=== PATIENT | male | born 2000 | race Caucasian/White ===

== ENCOUNTER 2024-06-14 12:24 | Emergency (ER) | payer SELFPAY ==
[~2024-06-14] VITALS: Ht 185.4 cm; Wt 143.8 kg
[~2024-06-14 12:24] MED LIST: CILOXAN 5 ML5 M1 OP; LORTAB 480 ML480 ML PO
[2024-06-14 13:31] LABS: BILIRUBIN Negative (Negative); BLOOD Negative (Negative); CLARITY Clear (Clear); COLOR Yellow (Yellow); GLUCOSE Negative (Negative); KETONE Trace (Negative); LEUKO ESTERASE Negative (Negative); NITRITE Negative (Negative); PH 7.5 (4.5-8.0); SPECIFIC GRAVITY 1.015 (1.001-1.030); UROBILINOGEN 0.2 E.U./dl (0.0-1.0)
[2024-06-14 13:40] LABS: BACTERIA TRACE; RBC 0-2 rbc/hpf (0-2); WBC 0-2 wbc/hpf (0-5)
[2024-06-14] MEDS ORDERED: PREDNISONE50 MG PO (13:48)
[2024-06-14] MEDS ORDERED: METHOCARBAMOL500 M1 PO (13:48)
[2024-06-14] MEDS ORDERED: predniSONE 20 MG TAB PO ONE (13:50)
[2024-06-14] MEDS ORDERED: METHOCARBAMOL 500 MG TAB PO ONE (13:50)
== END 2024-06-14 14:19 | disposition home or self-care (01) ==
LOC: ED 12:24
PROVIDERS: Nurse Practitioner Family
DX: S39.012A Strain of muscle, fascia and tendon of lower back, initial encounter (principal); Z79.2 Long term (current) use of antibiotics; Z79.899 Other long term (current) drug therapy; X58.XXXA Exposure to other specified factors, initial encounter; Y93.89 Activity, other specified; Y92.89 Other specified places as the place of occurrence of the external cause; Y99.8 Other external cause status